=== PATIENT | male | born 1990 ===

== ENCOUNTER 2018-12-14 14:55 | Outpatient (CLI) | payer MEDICAID | END 2018-12-14 14:56 | disposition home or self-care (01) | LOC: C.CTH 14:55 ==

== ENCOUNTER 2019-02-15 13:01 | Outpatient (CLI) | payer MEDICAID | END 2019-02-15 13:02 | disposition home or self-care (01) | LOC: C.PAT 13:01 | DX: J34.2 Deviated nasal septum (principal); J34.3 Hypertrophy of nasal turbinates; J32.0 Chronic maxillary sinusitis; J32.2 Chronic ethmoidal sinusitis; J32.3 Chronic sphenoidal sinusitis ==

== ENCOUNTER 2019-02-18 06:45 | Day surgery (SDC) | payer MEDICAID ==
[2019-01-24 13:02] VITALS: BMI 32.8
[2019-02-18] MEDS ORDERED: ceFAZolin 1 gm in NS 0 GM/0 ML BAG IVPB ONE (07:02)
[2019-02-18] MEDS ORDERED: Dexamethasone 4 mg/1 ml ONE (07:02)
[2019-02-18] MEDS ORDERED: Lidocaine/Epinephrine 1% 1:100000 10 ML IJ ONE (07:02)
[2019-02-18] MEDS ORDERED: EPINEPHrine 1:1000 Nasal Sol(30mL) ONE (07:02)
[2019-02-18] MEDS ORDERED: Propofol 10 mg/ml Inj (20 ML) ONE ×2 (08:04→10:12)
[2019-02-18] MEDS ORDERED: Midazolam 2 MG/2 ML VIAL ONE (08:05)
[2019-02-18] MEDS ORDERED: Morphine 10 mg/5 ml Oral Soln PO PRN (08:13)
[2019-02-18] MEDS ORDERED: Dextrose 5%/0.45% NS 1,000 ML IV SCH (08:15)
[2019-02-18] MEDS ORDERED: ceFAZolin 1 gm in NS 1 GM/100 ML BAG IVPB ONE (08:44)
[2019-02-18] MEDS ORDERED: HYDROmorphone 0.5 mg/0.5 ml ISec IVP PRN (10:42)
[2019-02-18 12:04] VITALS: RESP 18
[2019-02-18 12:13] VITALS: TEMP 98.3
[2019-02-18 13:34] VITALS: BP 135/87; PULSE 81; O2SAT 95
--- NOTE | 2019-02-18 14:52 | OP ---
PROCEDURE DATE: 02/18/2019 PREOPERATIVE DIAGNOSES: Deviated septum, large turbinates, sinusitis. POSTOPERATIVE DIAGNOSES: Deviated septum, large turbinates, sinusitis. PROCEDURES: Septoplasty, endoscopic bilateral inferior turbinate reduction, endoscopic bilateral maxillary antrostomy, endoscopic bilateral ethmoidectomy, endoscopic bilateral frontal sinusotomy, endoscopic bilateral sphenoidotomy. FINDINGS: Large turbinates, deviated septum, sinusitis changes noted in the ethmoid sinuses, sphenoid recess stenosed on both sides, maxillary antrum stenosed on both sides, and sphenoid antrum stenosed on both sides. DESCRIPTION OF PROCEDURE: The patient was brought into room, placed in supine position. Anesthesia was initiated through an ET tube. Adrenaline-soaked pledgets were inserted into nasal cavity, remained there for 5 minutes and removed. Navigation was set up and used throughout the case in order to ensure that the skull base was not entered. The septum was injected with lidocaine with epinephrine on both sides. A Seferino incision was made on the left and the mucoperichondrial flap was raised. A vertical incision was made in the cartilage leaving a 1.5 cm anterior-superior strut and mucoperichondrial flap was raised on the other side. Deviated portion of the cartilage and bone were removed using forceps and chisel. A quilting suture was used to suture the two flaps together and close the [place] incision. Next, a 0-degree scope was inserted into nasal cavity. Inferior turbinates were noted to be enlarged on both sides. They were reduced in size going from inferior to superior, anterior posterior direction on both sides, first on the left and then on the right. Bleeding was controlled using suction cautery. Possible large adenoids were noted in the nasopharynx. Biopsy was taken and suction cautery was used to control bleeding. Next, the middle turbinates were injected on both sides with lidocaine with epinephrine. The patient was turned to left. The middle turbinate was medialized. The uncinate process was medialized and removed using forceps. A debrider was used to enter the ethmoid bulla inferomedially going posterior to the basal lamella, then anterior and superiorly until the ethmoid bulla was removed. The basal lamella was entered. Posterior ethmoid cells were entered and opened. Skull base was identified and followed anteriorly all the way to the area of anterior ethmoid air cells. The frontal recess was noted to be stenosed and opened using forceps. The maxillary antrum was located using curved suction hooked up to navigation, noted to be stenosed and opened using forceps. The sphenoid antrum was noted to be stenosed, it was located using a straight suction hooked up to navigation and opened using forceps. Bleeding was controlled using adrenaline-soaked pledgets and suction cautery. Attention was turned to the other side. The middle turbinate was medialized. The uncinate process was medialized and removed using forceps. A debrider was used to enter the ethmoid bulla inferomedially going posteriorly to the basal lamella, then anterior and superiorly until the ethmoid bulla was removed. The basal lamella was entered. Posterior ethmoid cells were entered and opened. Skull base was identified and followed anteriorly all the way to the area of the anterior ethmoid air cells. The frontal recess was noted to be stenosed and opened using forceps. Maxillary antrum was located using curved suction hooked up to navigation, noted to be stenosed and opened using forceps. The sphenoid antrum was located using a suction hooked up to navigation and opened using forceps. Bleeding was controlled using suction cautery and adrenaline-soaked pledgets. Stents were placed. Splints were placed. The patient was taken off anesthesia and taken to recovery room in stable manner. Tyson Lomas MD
== END 2019-02-18 13:45 | disposition home or self-care (01) ==
LOC: C.SDS 06:45
PROVIDERS: ATTEND Otolaryngology
DX: J34.2 Deviated nasal septum (principal); J34.3 Hypertrophy of nasal turbinates; J32.9 Chronic sinusitis, unspecified
CPT/HCPCS: 30140; 30520; 31254; 31256; 31287; 88304; J0690; J2250; J2704; J3010